=== PATIENT | female | born 1990 | race Caucasian/White ===

== ENCOUNTER 2022-08-20 13:05 | Emergency (ER) | payer OTHER ==
[2022-08-20 13:10] VITALS: BP 132/83; PULSE 92; RESP 18; TEMP 98; BMI 28.3
[2022-08-20] MEDS ORDERED: IBUPROFEN 600 MG TABLET (FP) PO ONE ×2 (15:18→15:21)
[2022-08-20 16:01] LABS: EPI CELLS >36 /uL (0-25.1); HYALINE CASTS 17 /uL (0-3.1); PH,URINE 7.5 (5.0-8.0); URINE APPEARANCE CLOUDY; URINE BACTERIA >9,000 /uL (0-1359); URINE BILIRUBIN NEGATIVE (NEGATIVE); URINE COLOR YELLOW; URINE GLUCOSE (UA) NEGATIVE (NEGATIVE); URINE KETONE NEGATIVE (NEGATIVE); URINE LEUK ESTERASE 2+ (NEGATIVE); URINE NITRITE NEGATIVE (NEGATIVE); URINE PROTEIN 1+ (NEGATIVE); URINE RBC 117 /uL (0-23.9); URINE WBC 860 /uL (0-25.8)
[2022-08-20] MEDS ORDERED: CEPHALEXIN MONOHYDRATE 500 MG CAPSULE (UD) PO ONE (16:03)
[2022-08-20] MEDS ORDERED: CEPHALEXIN MONOHYDRATE 500 MG CAPSULE (UD) ONE (16:07)
== END 2022-08-20 16:40 | disposition home or self-care (01) ==
LOC: JERFT 13:05 → JER 13:05 → JERFT 16:40
DX: N39.0 Urinary tract infection, site not specified (principal)
CPT/HCPCS: 81003; 87086; 87186; 99283-25

== ENCOUNTER 2024-03-12 20:59 | Inpatient (IN) | payer OTHER ==
[2024-03-12 21:08] VITALS: BMI 25.0
[2024-03-12] MEDS ORDERED: ACETAMINOPHEN INJECTION 100 ML IVPB ONE (22:24)
[2024-03-12 22:37] LABS: BASO % 0.1 % (0-2.0); EOS % 0.2 % (0-4.5); HEMATOCRIT 33.9 % (32.4-45.2); LYMPH % 18.3 % (8-40); MCH 24.5 pg (25.7-33.7); MCHC 32.5 g/dl (32.0-36.0); MEAN CELL VOLUME 75.4 fl (80-96); MEAN PLT VOLUME 7.5 fl (7.5-11.1); MONO % 8.4 % (3.8-10.2); PLATELET COUNT 217 10^3/uL (134-434); RBC 4.49 M/mm3 (3.60-5.2); RDW 17.5 % (11.6-15.6); WHITE BLOOD COUNT 6.7 K/mm3 (4.0-10.0)
[2024-03-12 22:53] LABS: EPI CELLS 24 /uL (0-25.1); HYALINE CASTS 9 /uL (0-3.1); URINE APPEARANCE CLEAR; URINE BACTERIA 2472 /uL (0-1359); URINE BILIRUBIN NEGATIVE (NEGATIVE); URINE COLOR YELLOW; URINE GLUCOSE (UA) NEGATIVE (NEGATIVE); URINE KETONE TRACE (NEGATIVE); URINE LEUK ESTERASE 2+ (NEGATIVE); URINE NITRITE NEGATIVE (NEGATIVE); URINE PROTEIN NEGATIVE (NEGATIVE); URINE RBC 35 /uL (0-23.9); URINE WBC 138 /uL (0-25.8)
[2024-03-12 22:58] LABS: POTASSIUM 3.6 mmol/L (3.5-5.1)
[2024-03-12 23:00] LABS: ALBUMIN 3.4 g/dl (3.4-5.0); CALCIUM 8.2 mg/dL (8.5-10.1)
[2024-03-12 23:01] LABS: BLOOD UREA NITROGEN 8.4 mg/dL (7-18)
[2024-03-12 23:04] LABS: CREATININE 0.6 mg/dL (0.55-1.3)
[2024-03-12 23:05] LABS: BILIRUBIN,TOTAL 0.2 mg/dL (0.2-1); TOT PROT 6.6 g/dl (6.4-8.2)
[2024-03-12] MEDS: ACETAMINOPHEN 1000 MG/100 ML BAG IVPB ONE (23:05)
[2024-03-12 23:29] LABS: INR 1.13 (0.83-1.09)
[2024-03-12 23:32] LABS: ACTIVATED PTT 27.4 SECONDS (25.2-36.5)
[2024-03-12] MEDS ORDERED: CEFTRIAXONE 1 GM/50 ML BAG ONE (23:56)
[2024-03-13] MEDS: LACTATED RINGERS SOLUTION 1,000 ML/1,000 ML INFUS.BAG IV SCH (04:21)
[2024-03-13 08:51] LABS: BASO % 0.2 % (0-2.0); EOS % 0.7 % (0-4.5); HEMATOCRIT 30.9 % (32.4-45.2); LYMPH % 28.4 % (8-40); MCH 24.6 pg (25.7-33.7); MCHC 32.4 g/dl (32.0-36.0); MEAN CELL VOLUME 75.7 fl (80-96); MEAN PLT VOLUME 8.7 fl (7.5-11.1); MONO % 10.2 % (3.8-10.2); NEUT % 60.5 % (42.8-82.8); PLATELET COUNT 194 10^3/uL (134-434); RBC 4.08 M/mm3 (3.60-5.2); RDW 17.1 % (11.6-15.6); WHITE BLOOD COUNT 5.2 K/mm3 (4.0-10.0)
[2024-03-13 09:06] LABS: POTASSIUM 3.7 mmol/L (3.5-5.1)
[2024-03-13 09:09] LABS: ALBUMIN 3.1 g/dl (3.4-5.0); MAGNESIUM 2.1 mg/dL (1.8-2.4)
[2024-03-13 09:12] LABS: CREATININE 0.5 mg/dL (0.55-1.3)
[2024-03-13 09:13] LABS: PHOSPHOROUS 3.6 mg/dL (2.5-4.9)
[2024-03-13 09:14] LABS: BILIRUBIN,TOTAL 0.2 mg/dL (0.2-1)
[2024-03-13] MEDS ORDERED: CEFTRIAXONE 1 GM/50 ML BAG ONE (09:53)
[2024-03-13] MEDS: CEFTRIAXONE 1 GM in DEXTROSE 5%-WATER - 50 ML IVPB SCH (10:04)
[2024-03-13] MEDS: PRENATAL VITAMINS W/ FOLIC ACID TABLET (FP) PO SCH (10:04)
[2024-03-13] MEDS ORDERED: ACETAMINOPHEN 325 MG TABLET (FP) PO PRN (15:35)
[2024-03-14 09:06] LABS: BASO % 0.2 % (0-2.0); EOS % 0.6 % (0-4.5); HEMATOCRIT 31.4 % (32.4-45.2); HEMOGLOBIN 10.2 GM/dL (10.7-15.3); LYMPH % 28.6 % (8-40); MCH 24.5 pg (25.7-33.7); MCHC 32.5 g/dl (32.0-36.0); MEAN CELL VOLUME 75.3 fl (80-96); MEAN PLT VOLUME 8.4 fl (7.5-11.1); MONO % 8.9 % (3.8-10.2); NEUT % 61.7 % (42.8-82.8); PLATELET COUNT 197 10^3/uL (134-434); POTASSIUM 3.4 mmol/L (3.5-5.1); RBC 4.17 M/mm3 (3.60-5.2); RDW 17.2 % (11.6-15.6); WHITE BLOOD COUNT 5.2 K/mm3 (4.0-10.0)
[2024-03-14 09:07] LABS: CALCIUM 8.4 mg/dL (8.5-10.1)
[2024-03-14 09:08] LABS: BLOOD UREA NITROGEN 7.8 mg/dL (7-18)
[2024-03-14 09:11] LABS: CREATININE 0.5 mg/dL (0.55-1.3)
[2024-03-14 10:17] VITALS: BP 118/89; PULSE 72; RESP 18; TEMP 98.1
[2024-03-14] MEDS: POTASSIUM CHLORIDE ORAL LIQUID 20 MEQ/15 ML PO ONE (12:23)
== END 2024-03-14 15:34 | disposition home or self-care (01) | DRG 566 ==
LOC: JER 20:59 → JERBED 03-13 00:15 → OBSVTOIN 03-13 10:32 → J7W 03-13 14:02
PROVIDERS: ADMIT Internal Medicine; ATTEND Nurse Practitioner
DX: O23.01 Infections of kidney in pregnancy, first trimester (principal); O16.1 Unspecified maternal hypertension, first trimester; Z3A.08 8 weeks gestation of pregnancy; M54.9 Dorsalgia, unspecified
CPT/HCPCS: 36415; 76775-TC; 76817-TC; 80048; 80053; 81003; 83735; 84100; 84702; 84703; 85025; 85610; 85730; 86850; 86900; 86901; 87086; 93005; 93010; 99285-25; G0378; J0131

== ENCOUNTER 2024-09-09 17:01 | Emergency (ER) | payer OTHER ==
[2024-09-09 17:14] VITALS: BP 141/92; PULSE 97; RESP 18; TEMP 98.7; BMI 28.0
[2024-09-09] MEDS ORDERED: ACETAMINOPHEN 500 MG TABLET (FP) ONE (18:06)
[2024-09-09] MEDS: ACETAMINOPHEN 500 MG TABLET (FP) PO ONE (18:10)
== END 2024-09-09 19:31 | disposition home or self-care (01) ==
LOC: JERFT 17:01 → JER 17:01 → JERFT 19:31
DX: U07.1 COVID-19 (principal); J10.1 Influenza due to other identified influenza virus with other respiratory manifestations; R50.9 Fever, unspecified; R05.9 Cough, unspecified; R09.81 Nasal congestion
CPT/HCPCS: 0241U-QW; 71046-TC-FY; 99284-25

== ENCOUNTER 2024-09-29 12:02 | Inpatient (IN) | payer OTHER ==
[2024-09-29 14:01] LABS: BASO % 0.4 % (0-2.0); EOS % 0.1 % (0-4.5); HEMOGLOBIN 9.1 GM/dL (10.7-15.3); LYMPH % 19.5 % (8-40); MCH 24.6 pg (25.7-33.7); MCHC 32.4 g/dl (32.0-36.0); MEAN PLT VOLUME 8.9 fl (7.5-11.1); MONO % 5.4 % (3.8-10.2); NEUT % 74.6 % (42.8-82.8); PLATELET COUNT 201 10^3/uL (134-434); RBC 3.68 M/mm3 (3.60-5.2); WHITE BLOOD COUNT 7.1 K/mm3 (4.0-10.0)
[2024-09-29 14:08] LABS: INR 0.95 (0.83-1.09); PROTHROMBIN TIME (PATIENT) 10.4 SEC (9.7-13.0)
[2024-09-29 14:11] LABS: ACTIVATED PTT 24.7 SECONDS (25.2-36.5)
[2024-09-29 14:26] LABS: CALCIUM 8.5 mg/dL (8.5-10.1)
[2024-09-29 14:27] LABS: URINE APPEARANCE CLEAR; URINE BILIRUBIN NEGATIVE (NEGATIVE); URINE COLOR DK YELLOW; URINE GLUCOSE (UA) NEGATIVE (NEGATIVE); URINE KETONE TRACE (NEGATIVE); URINE LEUK ESTERASE NEGATIVE (NEGATIVE); URINE NITRITE NEGATIVE (NEGATIVE); URINE PROTEIN TRACE (NEGATIVE)
[2024-09-29 14:27] LABS: ALBUMIN 2.4 g/dl (3.4-5.0); BLOOD UREA NITROGEN 11.7 mg/dL (7-18)
[2024-09-29 14:30] LABS: CREATININE 0.7 mg/dL (0.55-1.3)
[2024-09-29 14:31] LABS: BILIRUBIN,TOTAL 0.3 mg/dL (0.2-1); TOT PROT 5.9 g/dl (6.4-8.2)
[2024-09-29 14:57] VITALS: BMI 29.1
[2024-09-29] MEDS: ELECTROLYTE-148 SOLN 1,000 ML IV SCH (15:30)
[2024-09-29] MEDS ORDERED: DEXAMETHASONE SOD PHOSPHATE 4 MG/1 ML VIAL ONE (16:53)
[2024-09-29] MEDS ORDERED: KETOROLAC TROMETHAMINE 30 MG/1 ML VIAL ONE (16:53)
[2024-09-29] MEDS ORDERED: ONDANSETRON 4 MG/2 ML VIAL ONE (16:53)
[2024-09-29] MEDS ORDERED: ceFAZolin SODIUM 1 GM VIAL ONE (16:53)
[2024-09-29] MEDS ORDERED: METOCLOPRAMIDE HCL INJECTION 10 MG/2 ML VIAL ONE (16:53)
[2024-09-29] MEDS ORDERED: morphine SULFATE/PF 1 MG/2 ML (2cc Syringe - QUVA) ONE (16:59)
[2024-09-29] MEDS ORDERED: FENTANYL CITRATE/PF 50 MCG/ML VIAL ONE (16:59)
[2024-09-29] MEDS: OXYTOCIN 20 UNITS in 0.9% NS 20 UNIT/1,000 ML INFUS.BAG IV SCH (19:30)
[2024-09-29 19:48] LABS: CORD HCO3 23.3 mmHg (20-29); CORD PCO2 56.8 mmHg (30-78); CORD pH 7.231 (7.14-7.44)
[2024-09-29 19:49] LABS: CORD BASE EXCESS -3.5 mmol/L (0-2); CORD HCO3 22.4 mmHg (20-29); CORD pH 7.325 (7.14-7.44)
[2024-09-29] MEDS ORDERED: OXYTOCIN 20 UNITS in 0.9% NS 20 UNIT/1,000 ML INFUS.BAG IV ONE (20:11)
[2024-09-29] MEDS ORDERED: LABETALOL HCL 100 MG TABLET (FP) ONE (21:26)
[2024-09-29] MEDS ORDERED: LABETALOL HCL 200 MG TABLET (FP) ONE (21:26)
[2024-09-29] MEDS: LABETALOL HCL 100 MG TABLET (FP) PO STA (21:30)
[2024-09-29] MEDS: IBUPROFEN 800 MG/8 ML IJ IVPB PRN (23:14)
[2024-09-29] MEDS: DINOPROSTONE 10 MG VAGINAL SUPPOSITORY VG ONE (23:52)
[2024-09-30] MEDS ORDERED: oxyCODONE HCL 5 MG TABLET PO PRN (06:33)
[2024-09-30 08:32] LABS: BASO % 0.2 % (0-2.0); EOS % 0.1 % (0-4.5); HEMATOCRIT 25.2 % (32.4-45.2); HEMOGLOBIN 7.9 GM/dL (10.7-15.3); LYMPH % 12.7 % (8-40); MCH 24.3 pg (25.7-33.7); MCHC 31.4 g/dl (32.0-36.0); MEAN CELL VOLUME 77.3 fl (80-96); PLATELET COUNT 150 10^3/uL (134-434); RBC 3.26 M/mm3 (3.60-5.2); RDW 17.8 % (11.6-15.6); WHITE BLOOD COUNT 10.2 K/mm3 (4.0-10.0)
[2024-09-30] MEDS: IBUPROFEN 600 MG TABLET (FP) PO PRN (16:28)
[2024-09-30] MEDS: SIMETHICONE 80 MG TAB.CHEW (FP) PO PRN (16:28)
[2024-09-30] MEDS ORDERED: BISACODYL 10 MG SUPP.RECT RC PRN (18:33)
[2024-10-01] MEDS: ACETAMINOPHEN 325 MG TABLET (FP) PO PRN (09:42)
[2024-10-01] MEDS: LABETALOL HCL 200 MG TABLET (FP) PO SCH (11:15)
[2024-10-02 08:07] LABS: BASO % 0.3 % (0-2.0); EOS % 0.7 % (0-4.5); HEMATOCRIT 25.2 % (32.4-45.2); HEMOGLOBIN 7.8 GM/dL (10.7-15.3); LYMPH % 14.1 % (8-40); MCH 23.8 pg (25.7-33.7); MCHC 31.2 g/dl (32.0-36.0); MEAN CELL VOLUME 76.4 fl (80-96); MEAN PLT VOLUME 8.9 fl (7.5-11.1); MONO % 3.5 % (3.8-10.2); NEUT % 81.4 % (42.8-82.8); PLATELET COUNT 194 10^3/uL (134-434); RBC 3.29 M/mm3 (3.60-5.2); RDW 18.2 % (11.6-15.6); WHITE BLOOD COUNT 11.6 K/mm3 (4.0-10.0)
[2024-10-02 10:55] VITALS: BP 133/83; PULSE 86; RESP 18; TEMP 97.7
== END 2024-10-02 14:20 | disposition home or self-care (01) | DRG 540 ==
LOC: JDEL 12:02 → JLDR 13:00 → J3W 22:43
PROVIDERS: ADMIT Student in an Organized Health Care Education/Training Program; ATTEND Student in an Organized Health Care Education/Training Program
PROC: 10D00Z1 Extraction of Products of Conception, Low, Open Approach (ICD-10-PCS; principal; 2024-09-29)
DX: O13.4 Gestational [pregnancy-induced] hypertension without significant proteinuria, complicating childbirth (principal); O32.1XX0 Maternal care for breech presentation, not applicable or unspecified; Z3A.37 37 weeks gestation of pregnancy; Z37.0 Single live birth
CPT/HCPCS: 36415; 36600; 59025; 80053; 81003; 82570; 82803; 84156; 85025; 85610; 85730; 86780; 86850; 86900; 86901; 88307-TC; 94010